=== PATIENT | female | born 1990 | race Caucasian/White ===

== ENCOUNTER 2018-05-18 12:04 | Emergency (ER) | payer MEDICAID ==
[~2018-05-18] VITALS: Ht 160 cm; Wt 66.7 kg
[2018-05-18 12:10] VITALS: Ht 160 cm; Wt 66.7 kg
[2018-05-18 13:10] LABS: UA SPECIFIC GRAVITY <=1.005 (1.005-1.035); microscopic required? YES; urine erythrocyte 2+ (NEGATIVE)
[2018-05-18 13:55] LABS: BASOPHIL % 0.7 % (0-2); PLATELET COUNT 410 x10^3mcL (130-400); RED CELL DISTRIBUTION WIDTH 19.8 % (11.5-14.5)
[2018-05-18 15:43] LABS: microscopic required? NO
[2018-05-18 16:21] LABS: urine erythrocyte NEGATIVE (NEGATIVE)
[2018-05-18 17:04] VITALS: BP 126/75
== END 2018-05-18 17:04 | disposition home or self-care (01) ==
LOC: ED 12:04
PROVIDERS: Emergency Medicine
DX: O20.0 Threatened abortion (principal)
CPT/HCPCS: 36415; J1460